=== PATIENT | female | born 1965 | race Caucasian/White ===

== ENCOUNTER → 2024-05-23 11:01 | Outpatient (CLI) | payer OTHER, SELFPAY ==
--- NOTE | 2024-05-23 11:04 | DI.RAD.S_ITS ---
PROCEDURE: XR PEL MIN 3V INDICATIONS: L THIGH PAIN TECHNIQUE: 3 view(s) of the pelvis acquired. COMPARISON: None. FINDINGS: Bones: No fractures or dislocations. No suspicious bony lesions. Soft tissues: Visualized bowel gas pattern is normal. No suspicious soft tissue calcifications. IMPRESSION: No acute bony abnormality. Dictated by: Dell Carlisle M.D. on 05/24/2024 at 10:36 Approved by: Dell Carlisle M.D. on 05/24/2024 at 10:43
== END ==
PROVIDERS: PCP Family Medicine; Referring Provider Family Medicine; Visit Provider Family Medicine
DX: M76.892 Other specified enthesopathies of left lower limb, excluding foot (principal)
CPT/HCPCS: 72190

== ENCOUNTER → 2024-05-24 11:14 | Outpatient (CLI) | payer OTHER, SELFPAY ==
[2024-05-24 13:01] LABS: Prothrombin Time 10.8 SECONDS (9.4-12.5)
[2024-05-24 13:05] LABS: Appearance Urine UA Clear; Color Urine UA Yellow; Glucose Urine UA NEGATIVE (Negative); Protein Urine UA Negative (Negative); Specific Gravity Urine UA 1.025 (1.000-1.035)
[2024-05-24 13:06] LABS: Bacteria Urine Occasional (0-1); Bilirubin Urine UA Negative (NEGATIVE); Ketones Urine UA NEGATIVE (NEGATIVE); Leukocyte Esterase Urine UA NEGATIVE (NEGATIVE); Nitrite Urine UA NEGATIVE (Negative); Occult Blood Urine UA Negative (Negative); RBC Urine 1-5/HPF (0-5/HPF); Squamous Epithelial Cell Urine 0-1 /HPF (0-5/HPF); Urine Volume 10mL (spun); Urobilinogen Urine UA 0.2 E.U./dL (0.2); WBC Urine 0-1/HPF (0-5/HPF)
[2024-05-24 13:26] LABS: Add Manual Diff / Slide Review NO; Basophils Absolute Auto 0 /uL (0-100); Basophils Percent Auto 0.6 % (0-2); Eosinophils Absolute Auto 0 /uL (0-450); Eosinophils Percent Auto 0.6 % (2-4); Hemoglobin 12.7 g/dL (12.0-16.0); Lymphocytes Absolute Auto 1900 /uL (1100-4500); Lymphocytes Percent Auto 33.8 % (25-40); Mean Corpuscular HGB Conc 34.5 % (30-36); Mean Corpuscular Hemoglobin 31.6 PG (26-34); Mean Corpuscular Volume 91.9 fL (80-100); Monocytes Absolute Auto 400 /uL (0-900); Monocytes Percent Auto 7.3 % (3-14); Neutrophils Absolute Auto 3200 /uL (1500-7000); Neutrophils Percent Auto 57.7 % (50-75); Platelet Count 275 X10^3/uL (150-400); Red Blood Cell Count 4.02 X10^6/uL (4.0-5.2); Red Cell Distribution Width 12.7 % (11.6-14.8); White Blood Cell Count 5.5 X10^3/uL (4.5-11.0)
[2024-05-24 13:36] LABS: PTT Partial Thromboplastin Tim 35 SECONDS (25.1-36.5)
[2024-05-24 13:45] LABS: Uric Acid 4.2 mg/dL (2.5-6.2)
[2024-05-24 13:47] LABS: Alanine Aminotransferase 34 IU/L (<35); Albumin 4.5 g/dL (3.5-5.0); Albumin Globulin Ratio 1.7 (1.0-2.8); Alkaline Phosphatase 51 U/L (38-126); Aspartate Aminotransferase 30 IU/L (14-36); BUN Creatinine Ratio 19.5 (6-22); Bilirubin Total 0.7 mg/dL (0.2-1.3); Blood Urea Nitrogen 16 mg/dL (7-17); Calcium 9.9 mg/dL (8.4-10.2); Carbon Dioxide 27 mmol/L (22-32); Chloride 100 mmol/L (98-107); Cholesterol 230 mg/dL (140-199); Estimated Glomerular Filt Rate > 60 mL/min (>60); Globulin 2.6 g/dL (1.7-4.1); Glucose 86 mg/dL (70-100); Magnesium 1.8 mg/dL (1.6-2.3); Phosphorous 3.6 mg/dL (2.5-4.5); Potassium 3.8 mmol/L (3.4-5.1); Sodium 135 mmol/L (137-145); Total Protein 7.1 g/dL (6.3-8.2); Triglycerides 94 mg/dL (35-150)
[2024-05-24 13:49] LABS: Hemoglobin A1C% w Est Avg Glu 4.9 % (4.0-6.0)
[2024-05-24 13:56] LABS: HEMOLYSIS < 15 (0-50)
[2024-05-24 13:58] LABS: HDL Cholesterol 127 mg/dL (40-60)
[2024-05-24 13:59] LABS: LDL Cholesterol Calculated 84 mg/dL (<100)
[2024-05-24 14:24] LABS: Hepatitis B Surface Antigen NEGATIVE s/c (NEGATIVE)
[2024-05-24 14:38] LABS: Hep C Virus Ab w/Reflex Quant NEGATIVE s/c (NEGATIVE)
[2024-05-25 07:36] LABS: Hepatitis B Core Antibody Negative (Negative)
[2024-05-25 11:13] LABS: Hepatitis A Antibody Total Positive (Negative); Varicella IgG Antibody Reactive (Non Reactive)
== END ==
PROVIDERS: PCP Family Medicine; Referring Provider Internal Medicine Nephrology; Visit Provider Internal Medicine Nephrology
DX: Z52.4 Kidney donor (principal)
CPT/HCPCS: 36415; 80053; 80061; 81001; 82610; 83036; 83735; 84100; 84550; 85025; 85610; 85730; 86480; 86644; 86682; 86704; 86706; 86708; 86753; 86787; 86803; 86900; 86901; 87086; 87340

== ENCOUNTER → 2024-05-26 13:49 | Outpatient (CLI) | payer OTHER, SELFPAY ==
[2024-05-26 15:07] LABS: Collection Time Urine 24 Hours; Total Volume Urine 2300 mL
[2024-05-26 15:14] LABS: Protein (Total) Urine Random 7 mg/dL (0-12); Total Protein 24 Hour Urine 161 mg/day (42-225)
== END ==
PROVIDERS: PCP Family Medicine; Referring Provider Internal Medicine Nephrology; Visit Provider Internal Medicine Nephrology
DX: Z52.4 Kidney donor (principal)
CPT/HCPCS: 84156